=== PATIENT | male | born 1960 | race Caucasian/White ===

== ENCOUNTER 2022-01-25 07:02 | Day surgery (SDC) | payer BC ==
[2022-01-23 12:49] LABS: SARS-CoV-2 Antigen Rapid Res Negative (Negative)
--- NOTE | 2022-01-23 17:07 | EKG ---
Test Date: 2022-01-23 Test Time: 11:10:34 [employer] Computer: SHIVA MEASUREMENT RESULTS: Intervals: Rate: 60 AR: 194 QRSD: 92 QT: 418 QTc: 418 [place]: P: 31 AR: 194 QRS: 56 T: 59 INTERPRETIVE STATEMENTS: Normal sinus rhythm Nonspecific ST abnormality Abnormal ECG No previous ECG available for comparison Electronically Signed On 01-23-22 17:06:31 CDT by Manjit Downing
[2022-01-25] MEDS ORDERED: Ringers Lactate 1,000 ML IV ONE (07:45)
[2022-01-25] MEDS ORDERED: propofoL 200 MG/20 ML VIAL IV ONE (08:47)
[2022-01-25] MEDS ORDERED: ROCURONIUM 50 MG/5 ML VIAL IV ONE (08:48)
[2022-01-25] MEDS ORDERED: LIDOCAINE 2% MPF 5 ML VIAL ONE (08:48)
[2022-01-25] MEDS ORDERED: FENTANYL CITR 100 MCG/2 ML ONE (08:48)
[2022-01-25] MEDS ORDERED: MIDAZOLAM HCL 2 MG/2 ML INJ ONE (08:48)
[2022-01-25] MEDS ORDERED: dexAMETHasone 10 MG/ML VIAL ONE (08:48)
[2022-01-25] MEDS ORDERED: EPINEPHRINE/PF 1 MG/ML AMP ONE (08:54)
[2022-01-25] MEDS ORDERED: OXYMETAZOLINE HCL 0.05% 15ML NAS ONE (08:54)
[2022-01-25] MEDS ORDERED: HYDRALAZINE HCL 20 MG/ML VIAL ONE (09:22)
--- NOTE | 2022-01-25 09:26 | P.OP ---
Cable Driller: NONE,NONE Preoperative diagnosis: neoplasm uncertain behavior, larynx Postoperative diagnosis: same Primary procedure: direct laryngoscopy with biopsy Anesthesia: general Estimated blood loss: 5ml Specimen: right true vocal fold Findings: friable mass, right true vocal fold Operative Technique: The neck was extended but no shoulder roll was necessary. A plastic tooth guard was applied to the upper dentition. The [facility] laryngoscope with telescope was used to perform a direct laryngoscopy. Moderate sized exophytic lesion was noted on the right true vocal fold but did not extend onto the anterior commissure or the false vocal fold. There were no visible lesions of the base of tongue, vallecula, epiglottis, lateral laryngeal/pharyngeal dunbar, arytenoids or post cricoid region, posterior pharyngeal wall. View of the subglottis was limited by the presence of the endotracheal tube. Due to patient's body habitus and mild difficulty with intubation, decision was made to forego removal of the tube at this time. The [facility] laryngoscope was then used to provide better exposure. It was placed in suspension. A small up- biting cup forceps was used to obtain tissue from the right true vocal fold and sent as permanent section. A cottonoid pledget soaked with epinephrine was applied to the biopsy site for several moments to aid in hemostasis. After removal the area appeared to be clean with no active bleeding. The laryngoscope was removed and the patient was returned to care of anesthesia for awakening extubation in the operating room which proceeded without difficulty. Complications: None Implants: none Transferred to: Recovery Room Condition: Good
[2022-01-25] MEDS ORDERED: GLYCOPYRROLATE 0.2 MG/ML SYR ONE (09:33)
[2022-01-25] MEDS ORDERED: NEOSTIGMINE 1 MG/ML -10 ML VIAL ONE (09:39)
[2022-01-25 11:40] VITALS: BP 151/83; TEMP 97; O2SAT 98
== END 2022-01-25 11:12 | disposition home or self-care (01) ==
LOC: OR 07:02
PROVIDERS: ATTEND Otolaryngology
PROC: 0CBS8ZX Excision of Larynx, Via Natural or Artificial Opening Endoscopic, Diagnostic (ICD-10-PCS; principal; 2022-01-25 08:30)
DX: J38.1 Polyp of vocal cord and larynx (principal); Z20.822 Contact with and (suspected) exposure to COVID-19
CPT/HCPCS: 93005; 36415; 88305; 87811; 31535; J0360; J2704; J2710; J0171; J2001; J2250; J3010; J1100; J7120